=== PATIENT | female | born 1970 | race Caucasian/White ===

== ENCOUNTER → 2022-05-10 16:17 | Outpatient (CLI) | payer BC, SELFPAY ==
--- NOTE | ~2022-05-10 | XR_ITS ---
EXAMINATION: XR lumbar spine min 4V DATE: 05/10/2022 17:53 INDICATION: Chronic low back and bilateral hip pain. TECHNIQUE: Standing anteroposterior, left and right oblique, lateral and coned-down lateral lumbosacr al views of the lumbar spine were obtained. COMPARISON: None. FINDINGS: 10 degrees dextroscoliosis measured between T12 and L3. Sagittal alignment is normal. Vertebral body and disc heights are normal. No pars interarticularis defects. Minimal to mild facet surgical clips i n the right abdomen which may be related to prior cholecystectomy. Osteoarthritis throughout the lumb ar spine. IMPRESSION: 1. Mild upper lumbar dextroscoliosis with multilevel minimal to mild lumbar facet osteoarthritis. Reviewed, dictated and finalized at location A. IMPRESSION: 1. Mild upper lumbar dextroscoliosis with multilevel minimal to mild lumbar fac et osteoarthritis.
--- NOTE | ~2022-05-10 | XR_ITS ---
EXAMINATION: XR hip BI wo pelvis DATE: 05/10/2022 17:53 INDICATION: Chronic bilateral hip pain TECHNIQUE: Anteroposterior and frog-leg lateral views of the left hip and anteroposterior and frog-le g lateral views of the right hip were obtained. COMPARISON: None. FINDINGS: Bone alignment is normal. No fracture or suspected avascular necrosis. Bilateral hip and sacroiliac j oint spaces are normal. A couple small phleboliths in the left hemipelvis. IMPRESSION: 1. Normal bilateral hips. Reviewed, dictated and finalized at location A. IMPRESSION: 1. Normal bilateral hips.
== END ==
PROVIDERS: PCP Chiropractor; Visit Provider Chiropractor
DX: M16.0 Bilateral primary osteoarthritis of hip (principal); M85.88 Other specified disorders of bone density and structure, other site; M41.86 Other forms of scoliosis, lumbar region
CPT/HCPCS: 72110; 73521